=== PATIENT | male | born 1930 | race Caucasian/White ===

== ENCOUNTER → 2018-07-29 | Outpatient (CLI) | payer OTHER | END | disposition home or self-care (01) | LOC: SHCH 09:20 | PROVIDERS: ATTEND Internal Medicine Cardiovascular Disease | DX: R00.1 Bradycardia, unspecified (principal) | CPT/HCPCS: 93306 ==

== ENCOUNTER → 2018-08-03 | Outpatient (CLI) | payer OTHER ==
[~2018-08-03] MED LIST: REGADENOSON 0.4 MG/5 ML PF SYG IVP SCH
== END | disposition home or self-care (01) ==
LOC: SHCH 08:50
PROVIDERS: ATTEND Internal Medicine Cardiovascular Disease
DX: R00.1 Bradycardia, unspecified (principal)
CPT/HCPCS: 78452; 93017; 96374; A9500 ×2; J2785

== ENCOUNTER 2018-09-10 05:57 | Observation (INO) | payer OTHER, MEDICARE ==
[2018-09-08 09:01] VITALS: BP 113/54
[2018-09-08 09:08] LABS: BASOPHILS % (AUTO) 0.5 % (0.0-5.0); EOSINOPHILS % (AUTO) 3.5 % (0.0-8.0); HEMATOCRIT 44.2 % (42-54); LYMPHOCYTES % (AUTO) 21.1 % (21.0-51.0); MEAN CORPUSCULAR HEMOGLOBIN 31.2 pg (27.0-33.0); MEAN CORPUSCULAR VOLUME 94.7 fL (79-99); MONOCYTES % (AUTO) 9.3 % (3.0-13.0); NEUTROPHILS % (AUTO) 65.6 % (40.0-77.0); PLATELET COUNT (AUTO) 232 K/uL (130-400); RED BLOOD CELL COUNT(AUTO) 4.67 MIL/uL (4.50-6.20); RED CELL DISTRIBUTION WIDTH 14.4 % (11.0-15.5); WHITE BLOOD COUNT (AUTO) 4.1 K/uL (4.8-10.8)
[2018-09-08 09:18] LABS: POTASSIUM 4.3 mmol/L (3.5-5.1)
[2018-09-08 09:29] LABS: PARTIAL THROMBOPLASTIN TIME 30.8 SEC (26.3-35.5); PROTHROMBIN TIME 10.5 SEC (9.6-11.6)
[2018-09-10] VITALS (11 sets, daily range): BP systolic 108–166; BP diastolic 64–112
[~2018-09-10] VITALS: Ht 182.9 cm; Wt 84.6 kg
[~2018-09-10 05:57] MED LIST changes: +ALPH600C3 PO; +GLUC-172 PO; +OMEG-125 PO; -REGADENOSON 0.4 MG/5 ML PF SYG IVP SCH; +[UNRECOGNIZED DRUG - OTHER] PO
--- NOTE | 2018-09-10 06:05 | NUR ---
PRE-PROCEDURE RECEIVED FROM HOME TO DAY 14 FOR PERMANENT PACEMAKER PLACEMENT VIA WALKING ACCOMPANIED BY STEPDAUGHTER ANDRE. AWAKE IN NO ACUTE DISTRESS. CONNECTED TO CONTINUOUS CARDIOPULMONARY MONITORING. ORIENTED TO ROOM. BED IN LOWEST POSITION, CALL LIGHT W/IN REACH, SIDE RAILS UP X2.
--- NOTE | 2018-09-10 06:45 | NUR ---
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
[2018-09-10] MEDS ORDERED: SODIUM CHLORIDE 0.9% 1000ML 1,000 ML IV ONE (07:15)
--- NOTE | 2018-09-10 09:15 | NUR ---
PROCEDURE TRANSFERRED TO RESEARCH TECHNOLOGIST BY TALITA CABALLERO RN FOR PERMANENT PACEMAKER PLACEMENT. AWAKE IN NO ACUTE DISTRESS.
[2018-09-10] MEDS ORDERED: MEPERIDINE-PF 25 MG/ML SYG ONE ×3 (09:26→10:16)
[2018-09-10] MEDS ORDERED: MIDAZOLAM HCL 1 MG/ML 2ML VIAL ONE ×3 (09:26→10:16)
[2018-09-10] MEDS ORDERED: VANCOMYCIN 1GM+NS 250ML 500 ML IV ONE (09:26)
[2018-09-10] MEDS ORDERED: LIDOCAINE HCL 1% MDV 50ML VIAL ONE (09:26)
[2018-09-10] MEDS ORDERED: BUPIVACAINE/PF 0.25% 30ML VIAL IJ ONE (09:30)
[2018-09-10] MEDS ORDERED: ACETAMINOPHEN-CODEINE 300/30MG TAB PO PRN (11:00)
[2018-09-10] MEDS ORDERED: ACETAMINOPHEN EXTRA STRENGTH 500 MG TABLET PO PRN (11:00)
--- NOTE | 2018-09-10 11:09 | NUR ---
RECEIVED PATIENT FROM [facility] S/P PACEMAKER PLACEMENT BY DR. BLANCAS. LEFT PECTORAL DRESSING IS CLEAN, DRY, AND INTACT. ARM SLING IS IN PLACE. FULL ASSESSMENT DONE. PATIENT TO REMAIN ON BEDREST FOR 3 HOURS. CALL LIGHT WITHIN REACH. INSTRUCTED TO CALL FOR ASSISTANCE.
--- NOTE | 2018-09-10 11:10 | NUR ---
ROUND DR. BLANCAS IN TO SPEAK WITH FAMILY. FAMILY ESCORTED TO PTS ROOM 225.
--- NOTE | 2018-09-10 11:48 | NUR ---
DR. DEWEY IS AWARE OF THIS ADMISSION.
[2018-09-10] MEDS: D3 PO SCH (21:00)
[2018-09-10] MEDS: GLUCOSAMINE PO SCH (21:00)
[2018-09-10] MEDS: [UNRECOGNIZED DRUG - OTHER] PO SCH (21:00)
[2018-09-10] MEDS: BOSWELLIA SERRA PO SCH (21:00)
--- NOTE | 2018-09-10 21:20 | NUR ---
S/P PACEMAKER PLACEMENT. REMINDED PATIENT OF LT ARM RESTRICTIONS. PATIENT VERBALIZED UNDERSTANDING.
[2018-09-11 00:08] VITALS: BP 107/64
[2018-09-11 03:43] VITALS: BP 143/69
[2018-09-11 03:55] LABS: HEMATOCRIT 40.2 % (42-54); MEAN CORPUSCULAR HEMOGLOBIN 32.5 pg (27.0-33.0); MEAN CORPUSCULAR HGB CONC 34.3 g/dL (32.0-36.0); MEAN CORPUSCULAR VOLUME 94.6 fL (79-99); PLATELET COUNT (AUTO) 208 K/uL (130-400); RED BLOOD CELL COUNT(AUTO) 4.25 MIL/uL (4.50-6.20); RED CELL DISTRIBUTION WIDTH 14.2 % (11.0-15.5); WHITE BLOOD COUNT (AUTO) 5.6 K/uL (4.8-10.8)
[2018-09-11 04:18] LABS: B-TYPE NATRIURETIC PEPTIDE 68 pg/mL (0-100)
[2018-09-11 07:00] VITALS: BP 141/80
[2018-09-11] MEDS: D3 PO SCH (08:33)
[2018-09-11] MEDS: GLUCOSAMINE PO SCH (08:33)
[2018-09-11] MEDS: [UNRECOGNIZED DRUG - OTHER] PO SCH (08:33)
[2018-09-11] MEDS: BOSWELLIA SERRA PO SCH (08:33)
[2018-09-11] MEDS ORDERED: ALPHA LIPOIC ACID 600 MG PO SCH (09:00)
[2018-09-11] MEDS ORDERED: FISH OIL 1000 MG/CAP PO SCH (09:00)
[2018-09-11 11:00] VITALS: BP 129/70
[2018-09-11] MEDS ORDERED: [UNRECOGNIZED DRUG - OTHER] PO SCH (12:00)
--- NOTE | 2018-09-11 14:00 | NUR ---
DISCHARGE INSTRUCTIONS/INFORMATION GIVEN TO PATIENT AND FAMILY MEMBERS AT BEDSIDE. TEACH BACK METHOD USED TO EDUCATE PATIENT ON ACTIVITY RESTRICTIONS, DIET, MEDICATIONS, S/S TO MONITOR, WHEN TO CALL MD, AND F./U APPOINTMENTS. PIV REMOVED. TIP WAS INTACT. TELE PACK REMOVED AND RETURNED. DRESSING TO LEFT PECTORAL INCISION SITE WAS CHANGED. LEFT STERI-STRIPS IN PLACE ORDERED. COVERED WITH NON-ADHERENT DRESSING AND TEGADERM. ALL PATIENT'S BELONGINGS WERE PACKED AND TAKEN HOME.
== END 2018-09-11 14:25 | disposition home or self-care (01) ==
LOC: DAH 05:57 → 2DH 05:58
PROVIDERS: ADMIT Internal Medicine; ATTEND Internal Medicine
DX: I49.5 Sick sinus syndrome (principal); Z88.0 Allergy status to penicillin; Z85.820 Personal history of malignant melanoma of skin; Z82.0 Family history of epilepsy and other diseases of the nervous system; Z79.01 Long term (current) use of anticoagulants; Z79.899 Other long term (current) drug therapy
CPT/HCPCS: 33208; 36415 ×2; 71045; 80048; 82948; 83880; 85025; 85027; 85610; 85730; 93005; A4606; C1785; C1898 ×2; G0378 ×27; J2175 ×3; J2250 ×3; J3370; J3490 ×2; J7030; 99156; 99157